=== PATIENT | female | born 1990 | race Caucasian/White ===

== ENCOUNTER 2025-03-20 15:52 | Outpatient (REF) | payer OTHER, SELFPAY ==
--- OUTSIDE RECORDS SUMMARY | 2025-03-20 15:57 | XMS_ITS | Data Portability ---
Author Organization [facility], Main Office Address [address] [facility] [address] [place] [phone] Care Team Providers Care Industrial Workers Name Role Phone BRYANNAPANCHO Primary Care Provider [phone] Assessment No assessment recorded. Plan of Treatment Reminders Order Date Submit Date Provider Last Modified By Organization Details Last Modified Time Details Appointments None recorde d. Lab CBC w/ auto diff 2016 017 [facility], [address], [place], [address], 7 14:07:52 CMP, serum or plasma 2016 017 [facility], [address], [place], [address], 7 16:00:17 vitamin D, 1,25-di hydroxy , serum 2016 017 [facility], [address], [place], [address], 7 08:54:23 borreli a burgdor feri C6 Ab, QL, serum 2016 017 [facility], [address], [place], [address], 7 10:20:37 rapid strep group A, throat 2016 017 [email or web address] In-Office Order, Internal Use Only DO Not Attach Compendium DO Not Attach Compendium, Do Not Delete/[place], [id number] 7 17:23:35 culture , urine 2016 017 VANI Not available 7 07:45:23 urinaly sis, complet e 2016 017 VANI Not available 7 20:05:43 urinaly sis, dipstic k 2016 017 [email or web address] In-Office Order, Internal Use Only DO Not Attach Compendium DO Not Attach Compendium, Do Not Delete/merge, [id number] 7 12:49:30 Referral physica l therapy back referra l 2013 014 [facility], [facility], [address] [place] [address], [address], 4 09:49:27 Procedures None recorde d. Surgeries None recorde d. Imaging None recorde d. Medication Orders amoxici llin 500 mg tablet 2016 017 [email or web address] [facility]/Pharmacy #[id number], [phone] [place], [address], 7 09:53:03 amoxici llin 500 mg tablet 2016 017 [email or web address] [facility]/Pharmacy #1130, [phone] [place], [address], 7 09:53:03 amoxici llin 875 mg tablet 2015 016 [facility] [place], [phone] [place], [address], 7 11:32:50 flutica sone propion ate 50 mcg/act uation nasal spray,s uspensi on 2015 016 [facility], [phone] [place], [address], 7 11:32:46 Patient TargetsNo targets recorded. Patient Instructions Encounter Date Encounter Id Patient Instructions Last Modified By Organization Details Last Modified Time 01/27/2014 [id number] Follow up if back pain not resolving or worsening. I have reviewed the note and agree with the assessment and plan of care.[facility] phelmuth Not available 01/28/2014 14:41:03 08/27/2015 [id number] ear infection (otitis media): care instructions ckrym Not available 08/30/2015 10:03:02 To call or return for worsening or concerns jthabet Not available 08/27/2015 10:55:28 Medications (OTC, herbal therapies, supplements) reviewed and reconciled with patient and or caregiver, including potential side effects, drug interactions, instructions, and the consequences of not taking medication. Reviewed potential barriers to medication adherence, such as side effects from medication or cost of medication. jthabet Not available 08/27/2015 10:55:28 06/16/2016 [id number] I have reviewed the note and agree with the assessment and plan of care. phelmuth Not available 06/16/2016 12:24:35 09/19/2016 [id number] strep throat: care instructions [email or web address] Not available 09/19/2016 11:19:29 10/03/2016 [id number] Call or return for worsening or concerns. jthabet Not available 10/03/2016 10:04:34 I have reviewed the note and agree with the assessment and plan of care. jeyson Not available 10/03/2016 12:06:04 Reason for Referral Referring Physician: Rolo Hall, Internal Medicine, Encounter Date: 01/27/2014 Results Created Date Observation Date Name Description Value Unit Range Abnormal Flag Note LastModifiedBy Organization Detail LastModifiedTime 09/20/1909/19/2016 rapid strep group A, throa t Strep positi ve Not Available In-Office Order Internal Use Only DO Not Attach Compendium DO Not Attach Compendium, Do Not Delete/merge, [id number] 09/19/2016 10:44:08 06/16/19 17 06/16/2016 urina lysis , dipst ick Leukocytes Trace Not Available In-Offi ce Order Internal Use Only DO Not Attach Compendium DO Not Attach Compendium, Do Not Delete/merge, 06/16/2016 11:49:59 06/16/1906/16/2016 urina lysis , dipst ick Nitrite negati ve Not Available In-Office Order Internal Use Only DO Not Attach Compendium DO Not Attach Compendium, Do Not Delete/merge, 06/16/2016 11:49:59 06/16/1906/16/2016 urina lysis , dipst ick Urobilinogen 1 Not Available In-Of fice Order Internal Use Only DO Not Attach Compendium DO Not Attach Compendium, Do Not Delete/merge, 06/16/2016 11:49:59 06/16/1906/16/2016 urina lysis , dipst ick Protein Trace Not Available In-Office Order Internal Use Only DO Not Attach Compendium DO Not Attach Compendium, Do Not Delete/merge, 06/16/2016 11:49:59 06/16/1906/16/2016 urina lysis , dipst ick pH 6.0 Not Available In-Office Order Internal Use Only DO Not Attach Compendium DO Not Attach Compendium, Do Not Delete/merge, 06/16/2016 11:49:59 06/16/1906/16/2016 urina lysis , dipst ick Blood Negati ve Not Available In-Office Order Internal Use Only DO Not Attach Compendium DO Not Attach Compendium, Do Not Delete/merge, 06/16/2016 11:49:59 06/16/1906/16/2016 urina lysis , dipst ick Specific [place] 1.030 Not Available In-Off ice Order Internal Use Only DO Not Attach Compendium DO Not Attach Compendium, Do Not Delete/merge, 06/16/2016 11:49:59 06/16/1906/16/2016 urina lysis , dipst ick Ketone Negati ve Not Available In-Office Order Internal Use Only DO Not Attach Compendium DO Not Attach Compendium, Do Not Delete/merge, 06/16/2016 11:49:59 06/16/1906/16/2016 urina lysis , dipst ick Bilirubin Small Not Available In-Offic e Order Internal Use Only DO Not Attach Compendium DO Not Attach Compendium, Do Not Delete/merge, 06/16/2016 11:49:59 06/16/1906/16/2016 urina lysis , dipst ick Glucose Negati ve Not Available In-Office Order Internal Use Only DO Not Attach Compendium DO Not Attach Compendium, Do Not Delete/merge, 06/16/2016 11:49:59 06/16/1906/16/2016 urina lysis , dipst ick Appearance Clear Not Available In-Offi ce Order Internal Use Only DO Not Attach Compendium DO Not Attach Compendium, Do Not Delete/merge, 06/16/2016 11:49:59 06/16/1906/16/2016 urina lysis , dipst ick Color [place] Not Available In-Office Order Internal Use Only DO Not Attach Compendium DO Not Attach Compendium, Do Not Delete/merge, 06/16/2016 11:49:59 06/16/1906/16/2016 urina lysis , compl ete appear/color DARK YELLO W CLOUD Y Not Available [facility] (Centralized Electronic Ordering - All Locations) Patient Can Go To The Location Of Their Choice, 06/16/2016 20:05:43 06/16/1906/16/2016 urina lysis , compl ete sp. gravity 1.029 (1.002 -1.030 ) Not Available [facility] (Centralized Electronic Ordering - All Locations) Patient Can Go To The Location Of Their Choice, 06/16/2016 20:05:43 06/16/1906/16/2016 urina lysis , compl ete urine pH 5.0 (4.0-8 .0) Not Available [facility] (Centralized Electronic Ordering - All Locations) Patient Can Go To The Location Of Their Choice, 06/16/2016 20:05:43 06/16/1906/16/2016 urina lysis , compl ete urine albumin NEGATI VE (neg) Not Available [facility] (Centralized Electronic Ordering - All Locations) Patient Can Go To The Location Of Their Choice, 06/16/2016 20:05:43 06/16/1906/16/2016 urina lysis , compl ete urine glucose NEGATI VE (neg) Not Available [facility] (Centralized Electronic Ordering - All Locations) Patient Can Go To The Location Of Their Choice, 06/16/2016 20:05:43 06/16/1906/16/2016 urina lysis , compl ete urine ketones NEGATI VE (neg) Not Available [facility] (Centralized Electronic Ordering - All Locations) Patient Can Go To The Location Of Their Choice, 06/16/2016 20:05:43 06/16/1906/16/2016 urina lysis , compl ete urine bilirubin NEGATI VE (neg) Not Available [facility] (Centralized Electronic Ordering - All Locations) Patient Can Go To The Location Of Their Choice, 06/16/2016 20:05:43 06/16/1906/16/2016 urina lysis , compl ete urine hemoglobn NEGATI VE (neg) Not Available [facility] (Centralized Electronic Ordering - All Locations) Patient Can Go To The Location Of Their Choice, 06/16/2016 20:05:43 06/16/1906/16/2016 urina lysis , compl ete urine nitrite NEGATI VE (neg) Not Available [facility] (Centralized Electronic Ordering - All Locations) Patient Can Go To The Location Of Their Choice, 06/16/2016 20:05:43 06/16/1906/16/2016 urina lysis , compl ete urine leukocyte NEGATI VE (neg) Not Available [facility] (Centralized Electronic Ordering - All Locations) Patient Can Go To The Location Of Their Choice, 06/16/2016 20:05:43 06/16/1906/16/2016 urina lysis , compl ete urobilinogen NORMAL mg/dL (norm) Not Available [facility] (Centralized [facility] Ordering - All Locations) Patient Can Go To The Location Of Their Choice, 06/16/2016 20:05:43 06/16/1906/16/2016 urina lysis , compl ete urine WBC's NONE SEEN /hpf (0-5) Not Available [facility] (Centralized Electronic Ordering - All Locations) Patient Can Go To The Location Of Their Choice, 06/16/2016 20:05:43 06/16/1906/16/2016 urina lysis , compl ete urine RBC's NONE SEEN /hpf (<3) Not Available [facility] (Centralized Electronic Ordering - All Locations) Patient Can Go To The Location Of Their Choice, 06/16/2016 20:05:43 06/16/1906/16/2016 urina lysis , compl ete mucus SLIGHT /lpf Not Available [facility] (Centralized Electronic Ordering - All Locations) Patient Can Go To The Location Of Their Choice, 06/16/2016 20:05:43 06/16/1906/16/2016 urina lysis , compl ete squamous epith 1 /hpf Not Available [facility] (Centralized Electronic Ordering - All Locations) Patient Can Go To The Location Of Their Choice, 06/16/2016 20:05:43 06/16/1906/16/2016 urina lysis , compl ete amorphous crystals SLIGHT /hpf Not Available [facility] (Centralized Electronic Ordering - All Locations) Patient Can Go To The Location Of Their Choice, 06/16/2016 20:05:43 06/16/1906/16/2016 cultu re, urine specimen description URINE Not Available [facility] (Centralized [facility] Ordering - All Locations) Patient Can Go To The Location Of Their Choice, 06/18/2016 07:45:23 06/16/1906/16/2016 cultu re, urine special requests NONE Not Available [facility] (Centralized Electronic Ordering - All Locations) Patient Can Go To The Location Of Their Choice, 06/18/2016 07:45:23 06/16/1906/17/2016 cultu re, urine culture NO GROWTH Not Available [facility] (Centralized Electronic Ordering - All Locations) Patient Can Go To The Location Of Their Choice, 06/18/2016 07:45:23 06/16/1906/18/2016 cultu re, urine report status FINAL 2016 Not Available [facility] (Centralized Electronic Ordering - All Locations) Patient Can Go To The Location Of Their Choice, 06/18/2016 07:45:23 10/04/1910/03/2016 CBC w/ auto diff WBC 7.0 K/mm3 (4.0-1 1.0) Not Available [facility] (Centralized Electronic Ordering - All Locations) Patient Can Go To The Location Of Their Choice, 10/03/2016 14:07:52 10/04/1910/03/2016 CBC w/ auto diff RBC 4.73 M/mm3 (4.20- 5.40) Not Available [facility] (Centralized Electronic Ordering - All Locations) Patient Can Go To The Location Of Their Choice, 10/03/2016 14:07:52 10/04/1910/03/2016 CBC w/ auto diff HGB 13.7 gm/dL (12.0- 16.0) Not Available [facility] (Centralized Electronic Ordering - All Locations) Patient Can Go To The Location Of Their Choice, 10/03/2016 14:07:52 10/04/1910/03/2016 CBC w/ auto diff HCT 41.2 % (37.0- 47.0) Not Available [facility] (Centralized Electronic Ordering - All Locations) Patient Can Go To The Location Of Their Choice, 10/03/2016 14:07:52 10/04/1910/03/2016 CBC w/ auto diff MCV 87.1 fL (80.0- 100.0) Not Available [facility] (Centralized Electronic Ordering - All Locations) Patient Can Go To The Location Of Their Choice, 10/03/2016 14:07:52 10/04/1910/03/2016 CBC w/ auto diff MCH 29.0 pg (27.0- 34.0) Not Available [facility] (Centralized Electronic Ordering - All Locations) Patient Can Go To The Location Of Their Choice, 10/03/2016 14:07:52 10/04/1910/03/2016 CBC w/ auto diff MCHC 33.3 g/dL (33.0- 37.0) Not Available [facility] (Centralized Electronic Ordering - All Locations) Patient Can Go To The Location Of Their Choice, 10/03/2016 14:07:52 10/04/1910/03/2016 CBC w/ auto diff plt 332 K/mm3 (150-4 60) Not Available [facility] (Centralized Electronic Ordering - All Locations) Patient Can Go To The Location Of Their Choice, 10/03/2016 14:07:52 10/04/192017 CBC w/ auto diff RDW-SD 38.6 fL (<47.0 ) Not Available [facility] (Centralized Electronic Ordering - All Locations) Patient Can Go To The Location Of Their Choice, 10/03/2016 14:07:52 10/04/1910/03/2016 CBC w/ auto diff MPV 10.1 fL (9.4-1 2.4) Not Available [facility] (Centralized Electronic Ordering - All Locations) Patient Can Go To The Location Of Their Choice, 10/03/2016 14:07:52 10/04/1910/03/2016 CBC w/ auto diff automated NRBC 0.0 #/100 _WBC' s Not Available [facility] (Centralized Electronic Ordering - All Locations) Patient Can Go To The Location Of Their Choice, 10/03/2016 14:07:52 10/04/1910/03/2016 CBC w/ auto diff abs. NRBC 0.0 K/mm3 Not Available [facility] (Centralized Electronic Ordering - All Locations) Patient Can Go To The Location Of Their Choice, 10/03/2016 14:07:52 10/04/1910/03/2016 CBC w/ auto diff neut # 3.2 K/mm3 (1.3-7 .0) Not Available [facility] (Centralized Electronic Ordering - All Locations) Patient Can Go To The Location Of Their Choice, 10/03/2016 14:07:52 10/04/1910/03/2016 CBC w/ auto diff lymph # 3.2 K/mm3 (0.8-3 .1) high Not Available [facility] (Centralized Electronic Ordering - All Locations) Patient Can Go To The Location Of Their Choice, 10/03/2016 14:07:52 10/04/1910/03/2016 CBC w/ auto diff mono# 0.3 K/mm3 (0.4-0 .9) low Not Available [facility] (Centralized Electronic Ordering - All Locations) Patient Can Go To The Location Of Their Choice, 10/03/2016 14:07:52 10/04/1910/03/2016 CBC w/ auto diff eo # 0.2 K/mm3 (0.0-0 .4) Not Available [facility] (Centralized Electronic Ordering - All Locations) Patient Can Go To The Location Of Their Choice, 10/03/2016 14:07:52 10/04/1910/03/2016 CBC w/ auto diff baso # 0.1 K/mm3 (0.0-0 .1) Not Available [facility] (Centralized Electronic Ordering - All Locations) Patient Can Go To The Location Of Their Choice, 10/03/2016 14:07:52 10/04/1910/03/2016 CBC w/ auto diff abs. imm gran 0.0 K/mm3 Not Available [facility] (Centralized Electronic Ordering - All Locations) Patient Can Go To The Location Of Their Choice, 10/03/2016 14:07:52 10/04/1910/03/2016 CBC w/ auto diff neut 46.4 % (44-76 ) Not Available [facility] (Centralized Electronic Ordering - All Locations) Patient Can Go To The Location Of Their Choice, 10/03/2016 14:07:52 10/04/1910/03/2016 CBC w/ auto diff lymph 45.4 % (15-43 ) high Not Available [facility] (Centralized Electronic Ordering - All Locations) Patient Can Go To The Location Of Their Choice, 10/03/2016 14:07:52 10/04/1910/03/2016 CBC w/ auto diff monocyte 4.2 % (4.5-1 0.5) low Not Available [facility] (Centralized Electronic Ordering - All Locations) Patient Can Go To The Location Of Their Choice, 10/03/2016 14:07:52 10/04/1910/03/2016 CBC w/ auto diff eo 3.0 % (0-6) Not Available [facility] (Centralized Electronic Ordering - All Locations) Patient Can Go To The Location Of Their Choice, 10/03/2016 14:07:52 10/04/1910/03/2016 CBC w/ auto diff baso 0.7 % (0-2) Not Available [facility] (Centralized Electronic Ordering - All Locations) Patient Can Go To The Location Of Their Choice, 10/03/2016 14:07:52 10/04/1910/03/2016 CBC w/ auto diff imm gran 0.3 % (0.0-0 .6) Not Available [facility] (Centralized Electronic Ordering - All Locations) Patient Can Go To The Location Of Their Choice, 10/03/2016 14:07:52 10/04/1910/03/2016 CMP, serum or plasm a glucose 83 mg/dL (70-99 ) Not Available [facility] (Centralized Electronic Ordering - All Locations) Patient Can Go To The Location Of Their Choice, 10/03/2016 16:00:17 10/04/1910/03/2016 CMP, serum or plasm a BUN 13 mg/dL (6-20) Not Available [facility] (Centralized Electronic Ordering - All Locations) Patient Can Go To The Location Of Their Choice, 10/03/2016 16:00:17 10/04/1910/03/2016 CMP, serum or plasm a creatinine 1.1 mg/dL (0.5-1 .0) high Not Available [facility] (Centralized Electronic Ordering - All Locations) Patient Can Go To The Location Of Their Choice, 10/03/2016 16:00:17 10/04/1910/03/2016 CMP, serum or plasm a sodium 138 mmol/ L (133-1 45) Not Available [facility] (Centralized Electronic Ordering - All Locations) Patient Can Go To The Location Of Their Choice, 10/03/2016 16:00:17 10/04/1910/03/2016 CMP, serum or plasm a potassium 4.7 mmol/ L (3.6-5 .2) Not Available [facility] (Centralized Electronic Ordering - All Locations) Patient Can Go To The Location Of Their Choice, 10/03/2016 16:00:17 10/04/1910/03/2016 CMP, serum or plasm a chloride 103 mmol/ L (98-10 7) Not Available [facility] (Centralized Electronic Ordering - All Locations) Patient Can Go To The Location Of Their Choice, 10/03/2016 16:00:17 10/04/1910/03/2016 CMP, serum or plasm a bicarbonate 24 mmol/ L (22-29 ) Not Available [facility] (Centralized Electronic Ordering - All Locations) Patient Can Go To The Location Of Their Choice, 10/03/2016 16:00:17 10/04/1910/03/2016 CMP, serum or plasm a anion gap 11 (4-17) Not Available [facility] (Centralized Electronic Ordering - All Locations) Patient Can Go To The Location Of Their Choice, 10/03/2016 16:00:10/04/1910/03/2016 CMP, serum or plasm a albumin 4.4 gm/dL (3.4-4 .8) Not Available [facility] (Centralized Electronic Ordering - All Locations) Patient Can Go To The Location Of Their Choice, 10/03/2016 16:00:10/04/1910/03/2016 CMP, serum or plasm a calcium 9.1 mg/dL (8.6-1 0.5) Not Available [facility] (Centralized Electronic Ordering - All Locations) Patient Can Go To The Location Of Their Choice, 10/03/2016 16:00:10/04/1910/03/2016 CMP, serum or plasm a bilirubin,to elizabet 0.6 mg/dL (0-1.2 ) Not Available [facility] (Centralized Electronic Ordering - All Locations) Patient Can Go To The Location Of Their Choice, 10/03/2016 16:00:10/04/1910/03/2016 CMP, serum or plasm a total protein 6.9 gm/dL (6.2-8 .2) Not Available [facility] (Centralized Electronic Ordering - All Locations) Patient Can Go To The Location Of Their Choice, 10/03/2016 16:00:10/04/1910/03/2016 CMP, serum or plasm a Ag ratio 1.8 Not Available [facility] (Centralized Electronic Ordering - All Locations) Patient Can Go To The Location Of Their Choice, 10/03/2016 16:00:10/04/1910/03/2016 CMP, serum or plasm a AST 17 U/L (0-32) Not Available [facility] (Centralized Electronic Ordering - All Locations) Patient Can Go To The Location Of Their Choice, 10/03/2016 16:00:10/04/1910/03/2016 CMP, serum or plasm a alk phos 54 U/L (35-10 4) Not Available [facility] (Centralized Electronic Ordering - All Locations) Patient Can Go To The Location Of Their Choice, 10/03/2016 16:00:17 10/04/19 17 10/03/2016 CMP, serum or plasm a ALT 15 U/L (0-33) Not Available [facility] (Centralized Electronic Ordering - All Locations) Patient Can Go To The Location Of Their Choice, [id number] 10/03/2016 16:00:17 10/04/1910/03/2016 CMP, serum or plasm a est GFR non 70 mL/mi n/1.7 3_M2 The CKD-E PI creat inine equat ion has not been valid ated in child bisi (<18 years ), pregn ant women , in some racia l or ethni c subgr oups other than Cauca sians and Afric an Ameri cans. Not Available [facility] (Centralized Electronic Ordering - All Locations) Patient Can Go To The Location Of Their Choice, [id number] 10/03/2016 16:00:17 10/04/19 17 10/03/2016 CMP, serum or plasm a est GFR 81 mL/mi n/1.7 3_M2 The CKD-E PI creat inine equat ion has not been valid ated in child bisi (<18 years ), pregn ant women , in some racia l or ethni c subgr oups other than Cauca sians and Afric an Ameri cans. Not Available [facility] (Centralized Electronic Ordering - All Locations) Patient Can Go To The Location Of Their Choice, [id number] 10/03/2016 16:00:17 10/04/1910/05/2016 fadumo barry orfer i C6 Ab, QL, serum lyme C6 antibody NEGAT CHEY NO ANTIB STANLEY TO FADUMO WILSONER I DETEC KARLIE. PATIE NTS IN EARLY STAGE S OF INFEC TION OR WHO WERE GIVEN EARLY ANTIB IOTIC TREAT MENT MAY NOT PRODU CE DETEC TABLE LEVEL S OF ANTIB STANLEY. THESE PATIE NTS WOULD BENEF IT FROM ROBYN SIN IN 2 TO 4 WEEKS . REFER ENCE RANGE : NEGAT CHEY Not Available [facility] (Centralized Electronic Ordering - All Locations) Patient Can Go To The Location Of Their Choice, [id number] 10/05/2016 10:20:37 10/04/19 17 10/10/2016 vitam in D, 1,25- dihyd aris, serum 1,25oh vitamin D 77 Refer ence range : 18 to 78 Unit: pg/mL (NOTE ) ----- ----- ----- ----A DDITI ONAL INFOR GENNY Randy---- ----- ----- ----- This test was devgerardo davis and its perfo rmanc e marce cteri stics deter mined by [facility] in a marlo r consi stent with ROSETTE tobin. This test has not been clear ed or appro rhea by the U.S. Food and Drug Admin istra tion. Test Perfo rmed by: [facility] Labor atori es [address] [place] [place] [address] Labor atory Direc tor: Joey dooley III, M.D. Not Available [facility] (Centralized Electronic Ordering - All Locations) Patient Can Go To The Location Of Their Choice, [id number] 10/10/2016 08:54:23 Result Notes None recorded. Problems Name Problem SNOMED Code Status Onset Date Resolution Date Notes Provider Name and Address Organization Details Recorded Time Urinary tract infectio us disease 69572659 Active MARCK Apple [address], [place], [address], [facility] 6 10:55:02 Dysuria 91340021 Completed 10/03/2016 RO Cox, [facility] 7 09:44:37 Otitis media 83225732 Completed 10/03/2016 RO Cox, [facility] 7 09:44:41 Influenz a vaccine needed 01780030609 06 Completed 201212/08/2013 RECORDED 05/13/19 13 2:24PM BY ISAIAS VERA MA, OFFICE VISIT MARCK Apple [address], [place], [address], [facility] 6 10:55:02 Influenz a vaccine needed 25842839716 06 Completed 201211/11/2013 RECORDED 05/13/19 13 2:24PM BY ISAIAS VERA MA, OFFICE VISIT Sarmad Lizarraga, [facility] [address], [place], [address], [facility] 6 10:55:02 Adult health examinat ion Completed 201312/08/2013 RECORDED 06/23/19 14 9:41AM BY BRAYAN COX ON/ADDEN DUM Sarmad Lizarraga, [facility] [address], [place], [address], [facility] 6 10:55:02 Adult health examinat ion Completed 201311/11/2013 RECORDED 06/23/19 14 9:41AM BY BRAYAN COX ON/ADDEN DUM Sarmad Lizarraga, [facility] [address] [facility] [address] [facility] [address], [place], [address], [facility] 6 10:55:02 Patient status finding [id number] Completed 201310/03/2016 RECORDED 08/13/19 14 12:49PM BY ARIADNA PENALOZA MA, OFFICE VISIT Evangelina Santiago MA [facility] 7 09:44:33 Asthma [id number] Active 2013 [facility]; RECORDED 08/13/19 14 12:49PM BY ARIADNA PENALOZA MA, OFFICE VISIT Sarmad Lizarraga, [facility] [address], [place], [address], [facility] 6 10:55:02 Backache 513800471 Active 2013 IMPRESSI ON: IMPROVIN G BUT NOT RESOLVED , REC. NSAIDS/R EST, PT TO START PT AT [facility](MEEKS S BEEN THERE PREVIOUS LY FOR KNEE PROBLEM) IF NOT RESOLVED NEXT WEEK; RECORDED 08/13/19 14 12:49PM BY ARIADNA PENALOZA MA, OFFICE VISIT Sarmad Lizarraga, [facility] [address] [facility] [address] [facility] [address], [place], [address], [facility] 6 10:55:02 Disorder of skin 57437341 Active 2013 IMPRESSI ON: LEFT CORNER OF MOUTH, TINY, RESOLVIN G, NO TREATMEN T NECESSAR Y; RECORDED 08/13/19 14 1:47PM BY EMMETT HALL PA-C, OFFICE VISIT Sarmad Lizarraga, [facility] [address] [facility] [address] [facility] [address], [place], [address], [facility] 6 10:55:02 Abnormal vision 0975319 Active 2013 RECORDED 08/13/19 14 12:49PM BY ARIADNA [place], OFFICE VISIT Jesueryn Lizarraga, [facility] [address] [facility] [address], [place], [address], [facility] 6 10:55:02 Problem Notes None recorded. Procedures Surgical History Date Name Laterality Status Provider Name and Address Organization Details Recorded Time 7 Orthopedic Surgery completed [facility] 14:39:59 Imaging Results None recorded. Procedure Notes None recorded. Medical Equipment None Reported. Allergies No known drug allergies Medications Name Sig Start Date Stop Date Status Note LastModified by Organization Details LastModified Time levonorgest rel/ethinyl estradiol 0.15-0.03 mg tabs active Not Available Not Available Not Available oxycodone/a cetaminophe n 5-325 mg tabs active Not Available Not Available Not Available sulfamethox azole/trime thoprim ds 800-160 mg tabs active Not Available Not Available Not Available amoxicillin 500 mg capsule active Not Available Not Available Not Available sulfamethox azole 800 mg-trimetho prim 160 mg tablet Take 1 tablet twice a day by oral route for 3 days. active Not Available Not Available No t Available amoxicillin 500 mg tablet Take 1 tablet 3 times a day by oral route for 7 days. 10/03 completed Not Available Not Available Not Available amoxicillin 875 mg tablet Take 1 tablet every 12 hours by oral route as directed for 7 days. 06/16 completed Not Available Not Available Not Available polymyxin B sulfate 10,000 unit-trimet hoprim 1 mg/mL eye drops Instill 1 drop 6 times a day by ophthalmi c route for 7 days. active Not Available Not Available No t Available fluticasone propionate 50 mcg/actuati on nasal spray,suspe nsion Inhale 2 sprays every day by intranasa l route as directed for 30 days. 06/16 completed Not Available Not Available Not Available oxycodone 5 mg tablet active Not Available Not Available No t Available levonorgest rel 0.15 mg-ethinyl estradiol 30 mcg tablets,3 mos pack(91) DAILY active Not Available Not Available Not Available Loryna (28) 3 mg-0.02 mg tablet active Not Available Not Available No t Available Vitals Date Recorded Body height Body weight Body mass index (BMI) Heart rate Oxygen saturation Body temperature Systolic And Diastolic Provider Name and Address Organization Details Last Updated DateTime 7 160.02 cm 12278.0 5 g 26.9 kg/m2 72 /min 96 % 98 [degF] 108/68 mm[Hg] Sarah Hernandez [facility] 7 11:34:10 Date Recorded Body height Body mass index (BMI) Oxygen saturation Heart rate Body weight Body temperature Systolic And Diastolic Provider Name and Address Organization Details Last Updated DateTime 6 160.02 cm 28.2 kg/m2 97 % 76 /min 72456.1 8683 g 97.2 [degF] 132/80 mm[Hg] Jose A Brown [facility] 6 10:42:19 Date Recorded Body height Body weight Body mass index (BMI) Body temperature Oxygen saturation Heart rate Systolic And Diastolic Provider Name and Address Organization Details Last Updated DateTime 7 160.02 cm 44110.9 2 g 25.9 kg/m2 98.4 [degF] 98 % 79 /min 108/68 mm[Hg] Sarah Hernandez [facility] 7 10:51:11 Date Recorded Body height Oxygen saturation Heart rate Body weight Body mass index (BMI) Body temperature Systolic And Diastolic Provider Name and Address Organization Details Last Updated DateTime 7 160.02 cm 99 % 79 /min 19701.9 9 g 25.8 kg/m2 98.2 [degF] 112/67 mm[Hg] Evangelina Santiago MA [facility] 7 09:52:35 Date Recorded Oxygen saturation Body weight Heart rate Body mass index (BMI) Body height Body temperature Systolic And Diastolic Provider Name and Address Organization Details Last Updated DateTime 4 100 % 57286.4 52841 g 76 /min 25.4 kg/m2 160.02 cm 98.1 [degF] 96/65 mm[Hg] Evangelina Santiago MA [facility] 4 09:03:58 Social History Question Answer Notes LastModified by [employer] Details LastModified Time Tobacco Smoking Status Never Smoker Evangelina Santiago MA [facility] 01/27/2014 09:01:59 What Is Your Level Of Caffeine Consumption? Occasional [email or web address] Information not available 01/27/2014 What Type Of Diet Are You Following? REGULAR [email or web address] Information not available 01/27/2014 Live Alone Or With Others? With Others Information not available 01/27/2014 Seat Belts Used Routinely Yes [email or web address] Information not available 01/27/2014 General Stress Level High [email or web address] Information not available 01/27/2014 Do You Use Sunscreen Routinely? Yes [email or web address] Information not available 01/27/2014 Sex: Unknown Functional Status Question Answer Note LastModified by [employer] Details LastModified Time What is your level of alcohol consumption? Occasional Information not available 01/27/2014 Are you currently employed? Yes [email or web address] Information not available 01/27/2014 Are you able to care for yourself independently? Yes [email or web address] Information not available 01/27/2014 What is your exercise level? Heavy [email or web address] Information not available 01/27/2014 Mental Status None recorded. Family History Relationship Description Onset Age of this Age Resolved Age Notes LastModified by Organization Details LastModified Time Paternal Aunt Carcinoma in situ of breast [email or web address] Not available 01/27 09:01:59 Notes:No FH of colon cancer Medical History No medical history recorded. Gynecological HistoryNo gynecological history recorded. Obstetrics History GPAL:G 0 P 0 0 0 0 Past Encounters Encounter ID Performer Location Encounter Start Date Encounter Closed Date Diagnosis/Indication Diagnosis SNOMED-CT Code Diagnosis ICD10 Code Diagnosis IMO Codes Diagnosis Note [id number] [facility] [address] [facility] [facility] [place] [address] 05/13/2012 00:00:00 [id number] [facility] [address] [facility] [place] [address] 06/23/2013 00:00:00 [id number] [facility] [address] [facility] [place] [address] 08/12/2013 00:00:00 [id number] MARCK Oh Main Office [address] [place] [address] 01/27/2014 08:47:49 01/27/2014 09:23:17 Backache 838356729 She would like to restart PT, referral given [id number] MARCK Apple Main Office [address] [place] [address] 08/27/2015 10:33:06 08/27/2015 11:00:40 Otitis media 67200978 H66.92 AXOX BID x 7 days, flonase daily to help w/ fluid, tylenol or ibuprofen for fever/ pain. [id number] Harriet Reyna PA-C Main Office [address] [address] 06/16/2016 11:26:03 06/16/2016 12:07:27 Pain in pelvis 57788310 R10.2 RLQ pain , likely ovulatory. Urine with trace of leukocytes . No blood. Less likely ureteral calculi or infection. Pt. guero advised to take Aleve 2 po BID on full stomack for 5 days. If pain returns or does not subside, call [facility]. Dysuria 52337519 R30.0 [id number] Harriet Reyna PA-C Main Office [address] [place] [address] 09/19/2016 10:38:39 09/19/2016 11:19:17 Acute pharyngitis 249840333 J02.9 Streptococ ángela sore throat 24401385 J02.0 Rapid strep test is positive. Start Abx as directed. Salt water gargles and take TYlenol or MOtrin for fever , pain and malaise. [id number] MARCK Apple Main Office [address] [address] [place] [address] 10/03/2016 09:28:10 10/03/2016 10:13:03 Fatigue 36040027 R53.83 will check blood work, hydration, rest, well balanced meals, call/ return for worsening sx, fever > 102.5 Health Concerns Section Related Observation LastModified by Organization Detai ls LastModified Time None Recorded Concern Status LastModified by Organization Details LastModified Time None Recorded Advance Directives Directive None Recorded Payers Insurance Date Sequence Insurance Name Policy Number Policy Martinez Covered Member ID Martinez Member ID Guarantor Name 10/03/[address] [place] [address] ([facility]) [id number] Emily Chao [id number] Rebecca Chao Notes Date Note Type Note Provider Name and Address Organization Details Recorded Time 01/28/20 14 text/htm l Pt injured her lower back the beginning of April 2013,was seen here and was sent for PT. Pt went to [facility] twice a week for pt for 3 months,pt felt better until six weeks ago.Pt works out six days a week at the gym and says the pain has come back and course is worsening. She has constanta dull low back ache but has sharp pain with exercise. Pancho Santoyo MD [address] [address], [place], [address], [facility] 01/28/2014 14:41:04 08/27/19 16 text/htm l Sinusitis/AllergyReported by PatientHPIFor associated symptoms, patient reportsthick phlegm in throat,constantly clearing the throat,ear fullness, andnasal itching. For quality, patient reportsworsening,congested, andcolored phlegm. For severity, patient reportslimits daily activitiesandinterference with work. For context, patient reportsrecent upper respiratory infection.Patient with cold sx over a week, past 2 days has had left ear pain, congestions, nasal discharge, dizziness and nauseaROS as noted in the HPI Pancho Santoyo MD [address], [address], [facility] 08/27/2015 12:40:21 06/16/19 17 text/htm l ROS as noted in the HPI 26 year old female c/o having acute sharp RLQ pain that is described as stabbing lasting about 1/2 an hr to 40 minutes. TOday has episodic sharp pains today , but not continuous. NO radiation to the back. NO urinary symptoms. NO fever, chills, nausea. Next menstrual period is due in a week and a half. Pt. is on estrogen-progest. combin . NO prior h/o cysts or [facility] BRASS issues. 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 Pancho Santoyo MD [address], [address], [facility] 06/16/2016 12:24:51 09/20/19 17 text/htm l Throat PainReported by Patient 26 year old female c/o 1 day onset of sore throat, fever, malaise and headache. Rapid strep test is positive. Pancho Santoyo MD [address], [address], [facility] 09/19/2016 20:57:12 10/04/19 17 text/htm l Generic HPI TemplateReported by PatientPresents with c/o extreme fatigue, sleeping a lot, + fever, headaches, no neck pain, + knee pain, + runny nose, congestion, sore throat a couple days ago but gone now. She was treated for strep 09/23 x 7 days with amox, felt better for 1-2 days then sx returned. No tick bite that she knows of but she does hike a lot and found a tick on her bed, small rash to back of leg, no itching or pain. She denies SOB. ? palpitations Prasad Childress MD [address] [address], [place], [address], [facility] 10/03/2016 12:06:14 OBGyn Episode No OBEpisode recorded.
[2025-03-21 08:27] LABS: Syphilis Screen Nonreactive (Nonreactive)
[2025-03-21 08:57] LABS: HIV Num 1 0.06 S/CO (0.00-0.99); ~HepC Num1 0.07 S/CO (0.00-0.79); ~Hepatitis C Antibody Nonreactive (Nonreactive)
== END 2025-03-20 15:53 | disposition home or self-care (01) ==
LOC: HO.LAB 15:52
PROVIDERS: PCP Internal Medicine; Visit Provider Internal Medicine Cardiovascular Disease
DX: Z01.84 Encounter for antibody response examination (principal); Z11.4 Encounter for screening for human immunodeficiency virus [HIV]; Z11.3 Encounter for screening for infections with a predominantly sexual mode of transmission; Z11.59 Encounter for screening for other viral diseases
CPT/HCPCS: 36415; 86780; 86803; 87389